=== PATIENT | female | born 1975 | race American Indian/Alaskan Native ===

== ENCOUNTER 2017-08-16 02:42 | Emergency (ER) | payer OTHER ==
[2017-08-16] MEDS ORDERED: DILAUDID ONE (03:24)
[2017-08-16] MEDS ORDERED: DILAUDID IV ONE (03:25)
[2017-08-16] MEDS ORDERED: ZOFRAN IV ONE (03:25)
--- NOTE | 2017-08-16 04:31 | XRay Report ---
FINAL REPORT PROCEDURE: XR ANKLE 2V RT TECHNIQUE: RIGHT ankle radiographs, AP and lateral views. HISTORY: RT ANKLE PAIN POST FALL COMPARISON: No prior studies are available for comparison. FINDINGS: There are displaced fractures of the distal fibula and the medial malleolus of the tibia. There is lateral dislocation of the tibiotalar joint. The talus and calcaneus appear intact. There is generalized soft tissue swelling. IMPRESSION: Fractures and dislocation of the ankle as described..
[2017-08-16] MEDS ORDERED: NACL 0.9% 1000 ML 1,000 ML IV ONE (05:26)
[2017-08-16] MEDS ORDERED: DIPRIVAN 10 MG/ML 1,000 MG/100 ML BOTTLE IV ONE (05:42)
--- NOTE | 2017-08-16 05:52 | XRay Report ---
FINAL REPORT PROCEDURE: XR CHEST 1V AP TECHNIQUE: Chest radiograph anteroposterior view. CPT 03781 HISTORY: post intubation' COMPARISON: No prior studies are available for comparison. FINDINGS: Heart: Normal. Mediastinum/Vessels: Normal. Lungs/Pleural space: Normal. Bony thorax: No acute osseous abnormality. Life support devices: Endotracheal tube is in the midportion of the trachea.. IMPRESSION: No acute cardiopulmonary abnormality. The ET tube is in the mid trachea.
[2017-08-16 06:03] LABS: Basophils % (Auto) 0.7 % (0.0-1.8); Eosinophils # (Auto) 0.1 K/mm3 (0.0-0.4); Hematocrit 42.4 % (30.3-42.9); Hemoglobin 13.7 gm/dl (10.1-14.3); Lymphocytes # (Auto) 2.6 K/mm3 (1.2-5.4); Lymphocytes % (Auto) 50.7 % (13.4-35.0); Mean Corpuscular HGB Conc 32 % (30-34); Mean Corpuscular Hemoglobin 33 pg (28-32); Mean Corpuscular Volume 103 fl (79-97); Monocytes # (Auto) 0.3 K/mm3 (0.0-0.8); Monocytes % (Auto) 4.8 % (0.0-7.3); Platelet Count 178 K/mm3 (140-440); Red Blood Count 4.12 M/mm3 (3.65-5.03); Red Cell Distribution Width 14.1 % (13.2-15.2)
[2017-08-16 06:11] LABS: BUN/Creatinine Ratio 10; Blood Urea Nitrogen 5 mg/dL (7-17); Calcium 8.3 mg/dL (8.4-10.2); Hemolysis Index 13
--- NOTE | 2017-08-16 06:12 | XRay Report ---
FINAL REPORT PROCEDURE: XR ANKLE 1V RT TECHNIQUE: RIGHT ankle radiographs, AP, lateral, and oblique views. CPT 50002 HISTORY: post reduction COMPARISON: 08/16/2017 FINDINGS: Fracture (s) and/or Dislocation(s): Fractures of the tibia and fibula have been reduced.. Alignment: Normal. Joint space(s): Tibiotalar dislocation has been reduced.. Soft tissues: There is generalized soft tissue swelling.. Bone mineralization: Normal. Foreign bodies: None. Calcaneal spurring: None. IMPRESSION: Fractures of the tibia and fibula have been reduced.. Bony structures are in good alignment and close approximation. Tibiotalar dislocation has been reduced.. There is generalized soft tissue swelling.. .
--- NOTE | 2017-08-16 06:58 | Emergency Department Report ---
ED Extremity Problem HPI - General Chief complaint: Extremity Injury, Lower Stated complaint: RT ANKLE PAIN Time Seen by Provider: 08/16/17 03:01 Source: patient Mode of arrival: Stretcher Limitations: Physical Limitation - History of Present Illness Initial comments: Patient is a 42-year-old female who presented with right ankle pain. Patient states she was walking down some stairs she tripped and fell. Patient has been drinking alcohol. Patient has 10 out of 10 pain in the right ankle with obvious deformity. Patient denies any other injury did not hit her head was no loss of consciousness. Severity scale (0 -10): 10 - Related Data Previous Rx's Medication Instructions Recorded Last Taken Type HYDROcodone/ACETAMINOPHEN [[place] 1 each PO Q4HR PRN #15 tablet 08/16/17 Unknown Rx 5-325 Tablet] Ibuprofen [Motrin] 800 mg PO Q8HR PRN #20 tablet 08/16/17 Unknown Rx Allergies Allergy/AdvReac Type Severity Reaction Status Date / Time No Known Allergies Allergy Unverified 08/16/17 02:51 ED Review of Systems ROS: Stated complaint: RT ANKLE PAIN Other details as noted in HPI Comment: All other systems reviewed and negative ED Past Medical Hx - Social History Smoking Status: Current Every Day Smoker Substance Use Type: Alcohol - Medications Home Medications: Home Medications Medication Instructions Recorded Confirmed Last Taken Type HYDROcodone/ACETAMINOPHEN [[place] 1 each PO Q4HR PRN #15 tablet 08/16/17 Unknown Rx 5-325 Tablet] Ibuprofen [Motrin] 800 mg PO Q8HR PRN #20 tablet 08/16/17 Unknown Rx ED Physical Exam - General Limitations: Physical Limitation General appearance: alert, in no apparent distress - Head Head exam: Present: atraumatic, normocephalic - Eye Eye exam: Present: normal appearance - ENT ENT exam: Present: mucous membranes moist - Neck Neck exam: Present: normal inspection - Respiratory Respiratory exam: Present: normal lung sounds bilaterally. Absent: respiratory distress, wheezes, rales - Cardiovascular Cardiovascular Exam: Present: regular rate, normal rhythm. Absent: systolic murmur, diastolic murmur, rubs, gallop - GI/Abdominal GI/Abdominal exam: Present: soft, normal bowel sounds - Extremities Exam Extremities exam: Present: other. Absent: normal inspection (the right ankle has obvious deformity with the foot angulated laterally. There are are intact dorsalis pedal pulses she is able to move her toes.) - Back Exam Back exam: Present: normal inspection - Neurological Exam Neurological exam: Present: alert, oriented X3 - Psychiatric Psychiatric exam: Present: normal affect, normal mood - Skin Skin exam: Present: warm, dry, intact, normal color. Absent: rash ED Course Vital Signs 08/16/17 08/16/17 08/16/17 02:45 03:28 04:00 Temperature 98.3 F Pulse Rate 84 62 68 Respiratory 18 13 Rate Blood Pressure 142/82 Blood Pressure 140/80 [Left] O2 Sat by Pulse 98 88 99 Oximetry 08/16/17 08/16/17 05:00 06:01 Temperature Pulse Rate 98 H Respiratory 0 L Rate Blood Pressure 140/96 137/75 Blood Pressure [Left] O2 Sat by Pulse 99 Oximetry - Intubation Sedative: Etomidate Laryngoscope: Manuel Size: 4 ET Tube Size: 7.5 Tube Secured Depth (cm): 22 Tube Secured Location: lips Tube Placement Confirmation: visualized tube passing t, equal breath sounds bilat, no breath sounds over epi, confirmation by capnometr Patient Tolerated Procedure: no complications Intubation Complications: none - Moderate Sedation Indications: fracture/dislocation redu ASA Class: II Mallampati Airway Score: 2 Preparation: ekg monitor tech applied, pulse oximeter, supplemental O2 applied, reversal agents at bedside, suction/airway equipment at bedside, IV secured IV Etomidate Dose (mgs): 10 Complications: hypoventilation Interventions: oxygen applied, airway repositioned, intubation (after bagging the patient with oral airway in place for approximately 10 minutes patient did not appear to be breathing without assistance and therefore she was intubated. Patient was intubated approximately 30 minutes and then started to come around. Patient was extubated by me and has returned back to normal function. Patient is laughing and joking and talking with her and myself.) ED Medical Decision Making - Lab Data Result diagrams: 08/16/17 05:53 08/16/17 05:53 - Radiology Data Radiology results: report reviewed, image reviewed interpreted by me: Initial x-ray of the right ankle shows a dry malleolus fracture. Reduction films show improved alignment of the fractures and the talotibial dislocation. Chest x-ray is within normal limits endotracheal tube is in proper place. - Medical Decision Making Patient is a 42-year-old female who suffered a trimalleolar fracture. Patient had moderate sedation performed but because of the patient's high alcohol level which was unknown to staff at the time the patient was sedated deeper than we expected. Patient was bagged to maintain her oxygen saturation levels in the 90s however after approximately 10 minutes of bagging the patient was intubated. Patient was intubated approximately 30 minutes. Patient was extubated by me and is doing well at 7 AM. Patient mL 3 is laughing and drug with her . Patient has looked at her x-rays. Patient verbalized that she understands what happened to her today and is able to recount story. Patient will be discharged home after she is a little more clinically sober. Patient is on nasal cannula at this time. Patient will be weaned off be discharged home. Patient will follow Dr. Rodriguez in orthopedic clinic. Critical Care Time: Yes Critical care time in (mins) excluding proc time.: 30 Critical care attestation.: If time is entered above; I have spent that time in minutes in the direct care of this critically ill patient, excluding procedure time. ED Disposition Clinical Impression: Trimalleolar fracture of ankle, closed Qualifiers: Encounter type: initial encounter Laterality: right Qualified Code(s): S82.851A - Displaced trimalleolar fracture of right lower leg, initial encounter for closed fracture Alcohol intoxication Qualifiers: Complication of substance-induced condition: uncomplicated Qualified Code(s): F10.920 - Alcohol use, unspecified with intoxication, uncomplicated Disposition: DC-01 TO HOME OR SELFCARE Is pt being admited?: No Does the pt Need Aspirin: No Condition: Stable Prescriptions: HYDROcodone/ACETAMINOPHEN [[place] 5-325 Tablet] 1 each PO Q4HR PRN #15 tablet PRN Reason: Pain Ibuprofen [Motrin] 800 mg PO Q8HR PRN #20 tablet PRN Reason: Pain Referrals: HAYLIE RODRIGUEZ MD [Staff Physician] - 3-5 Days
[2017-08-16] MEDS ORDERED: DIPRIVAN 10 MG/ML 1,000 MG/100 ML BOTTLE IV SCH (07:00)
[2017-08-16 10:42] VITALS: BP 126/75
[2017-08-16] MEDS ORDERED: AMIDATE IV ONE (15:46)
[2017-08-16] MEDS ORDERED: ZEMURON IV ONE (15:46)
== END 2017-08-16 10:40 | disposition home or self-care (01) ==
LOC: ED 02:42
DX: S82.851A Displaced trimalleolar fracture of right lower leg, initial encounter for closed fracture (principal); F10.920 Alcohol use, unspecified with intoxication, uncomplicated; W01.198A Fall on same level from slipping, tripping and stumbling with subsequent striking against other object, initial encounter; Y93.89 Activity, other specified; Y92.89 Other specified places as the place of occurrence of the external cause; Y99.8 Other external cause status
CPT/HCPCS: 31500; 36415; 71045; 73600; 80048; 85025; 87070; 87205; 96361; 96374; 99291; G0480; J1170; J2704; J7030; 80320; 94002